=== PATIENT | female | born 1980 | race Caucasian/White ===

== ENCOUNTER 2017-12-26 12:39 | Emergency (ER) | payer SELFPAY ==
[~2017-12-26] VITALS: Ht 170.2 cm; Wt 79.5 kg
[2017-12-26 12:51] VITALS: Ht 170.2 cm; Wt 79.5 kg
[2017-12-26] MEDS ORDERED: CELEXA20 MG PO (12:52)
[2017-12-26] MEDS ORDERED: TRILEPTAL300 MG PO (12:52)
[2017-12-26 14:48] VITALS: BP 130/80
== END 2017-12-26 14:47 | disposition home or self-care (01) ==
LOC: D.ER 12:39
DX: S81.812D Laceration without foreign body, left lower leg, subsequent encounter (principal); X58.XXXD Exposure to other specified factors, subsequent encounter; Z48.02 Encounter for removal of sutures; F17.200 Nicotine dependence, unspecified, uncomplicated